=== PATIENT | male | born 1985 | race African-American/Black ===

== ENCOUNTER 2016-10-02 10:39 | Emergency (ER) | payer OTHER | END 2016-10-02 12:27 | disposition home or self-care (01) | LOC: ER 10:39 | DX: S16.1XXA Strain of muscle, fascia and tendon at neck level, initial encounter (principal); M25.511 Pain in right shoulder; V49.9XXA Car occupant (driver) (passenger) injured in unspecified traffic accident, initial encounter | CPT/HCPCS: 72125; 96372; 99284; J1885 ==